=== PATIENT | female | born 1970 | race African-American/Black ===

== ENCOUNTER 2023-08-17 10:06 | Emergency (ER) | payer MEDICAID ==
[~2023-08-17] VITALS: Ht 154.9 cm; Wt 72.7 kg
[2023-08-17] MEDS ORDERED: METF-1211 PO (10:19)
[2023-08-17] MEDS ORDERED: SIMV-260 PO (10:19)
[2023-08-17] MEDS ORDERED: ASPI-1450 PO (10:19)
[2023-08-17] MEDS ORDERED: CYCLOBENZAPRINE HCL 10 MG TABLET PO ONE (11:00)
[2023-08-17] MEDS ORDERED: LIDOCAINE 5% TRANSDERMAL PATCH TD ONE (11:00)
[2023-08-17] MEDS: KETOROLAC TROMETHAMINE 30 MG/ML VIAL IM ONE ×2 (11:01→11:09)
[2023-08-17 12:12] VITALS: BP 124/66; PULSE 81; RESP 16; TEMP 98.5
[2023-08-17] MEDS ORDERED: LIDO700A15 TP (12:28)
[2023-08-17] MEDS ORDERED: CYCL-448 PO (12:28)
== END 2023-08-17 12:43 | disposition home or self-care (01) ==
LOC: EMS 10:18
DX: M54.50 Low back pain, unspecified (principal); E11.9 Type 2 diabetes mellitus without complications; E78.00 Pure hypercholesterolemia, unspecified; I10 Essential (primary) hypertension; Z98.890 Other specified postprocedural states
CPT/HCPCS: 99283; 82962; J1885